=== PATIENT | female | born 2000 | race Caucasian/White ===

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

== ENCOUNTER → 2024-03-23 11:47 | Outpatient (BNVA) | payer MEDICAID, SELFPAY | PROVIDERS: Visit Provider Nurse Practitioner | DX: R39.9 Unspecified symptoms and signs involving the genitourinary system (principal) | CPT/HCPCS: 81000 ==

== ENCOUNTER → 2024-04-19 09:18 | Outpatient (BNVA) | payer MEDICAID, SELFPAY | PROVIDERS: PCP Family Medicine Adult Medicine; Visit Provider Nurse Practitioner Family | DX: J02.9 Acute pharyngitis, unspecified (principal) | CPT/HCPCS: 87880 ==

== ENCOUNTER 2024-05-30 22:38 | Emergency (ER) | payer MEDICAID, SELFPAY ==
[2024-05-30 22:39] VITALS: BP 132/86; PULSE 92; RESP 15; TEMP 36.8; O2SAT 99
--- NOTE | 2024-05-30 23:02 | XRR_ITS ---
PROCEDURE INFORMATION: Exam: XR Chest Exam date and time: 05/30/2024 11:10 PM Age: 23 years old Clinical indication: Other: Seizure TECHNIQUE: Imaging protocol: Radiologic exam of the chest. Views: 1 view. COMPARISON: CR XR chest 1V [id number] 02/20/2019 5:54 PM FINDINGS: Lungs: Unremarkable. No consolidation. Pleural spaces: Unremarkable. No pleural effusion. No pneumothorax. Heart/Mediastinum: Unremarkable. No cardiomegaly. Bones/joints: Unremarkable. XR/XR chest 1V portable [id number] IMPRESSION: No acute findings.
--- NOTE | 2024-05-30 23:02 | CTR_ITS ---
PROCEDURE INFORMATION: Exam: CT Head Without Contrast Exam date and time: 05/30/2024 11:07 PM Age: 23 years old Clinical indication: Altered mental status/memory loss and speech disturbance; Confusion or disorientation; Slurred speech; Additional info: Seizure TECHNIQUE: Imaging protocol: Computed tomography of the head without contrast. Radiation optimization: All CT scans at this facility use at least one of these dose optimization techniques: automated exposure control; mA and/or kV adjustment per patient size (includes targeted exams where dose is matched to clinical indication); or iterative reconstruction. COMPARISON: No relevant prior studies available. RADIATION DOSE METRICS: Total DLP (mGy-cm): 1002.38 FINDINGS: Brain: Normal. No hemorrhage. Unremarkable white matter. No mass effect. Cerebral ventricles: No ventriculomegaly. Paranasal sinuses: Visualized sinuses are unremarkable. No fluid levels. Mastoid air cells: Visualized mastoid air cells are well aerated. Bones: Unremarkable. No acute fracture. Soft tissues: Unremarkable. CT/CT head wo con* [id number] IMPRESSION: No acute intracranial abnormality.
--- NOTE | 2024-05-30 23:04 | ED_ITS ---
HPI - Seizure 2 General: Chief Complaint: Seizure Stated Complaint: seizure Time Seen by Provider: 05/30/24 22:54 History of Present Illness: HPI Narrative: Patient reports having seizures today about 1:00. Patient does have a history of seizures last known seizure was about a year ago. She reports this seizure was mild 1 where she open and close her eyes several times in her eyes twitch [id number] and she passed out. Patient still having headache from this. Patient did take 2 [id number] Motrin. Patient is not on any medication for seizures. This was witnessed by her friends. She also says she still has a headache on her right side and feels some pressure in her eye. Review of Systems 2 General: Reports: 10 or more systems reviewed and unremarkable except in HPI and below PFSH ED 2 PFSH: Medical History Skin tag, acquired Dermatofibroma of neck Heart palpitations Surgical History History of bilateral ligation of fallopian tubes Lap BTL 12/16/[address] Sebas Deras, [facility] Status post laparoscopic cholecystectomy H/O esophagogastroduodenoscopy 01/02/2020: Mild gastritis Family History Grandmother Cancer breast cancer Father No problems noted. Mother Ovarian cancer Heart palpitations Other Diabetes Heart disease Denies family history of Anesthesia complication Bleeding disorder Social History Smoking and tobacco/nicotine status: never used tobacco/nicotine Alcohol intake: never Substance/Drug Use: never Household members: significant other Marital status: Single Current occupational status: unemployed Physical Exam 2 Const: COMMON NORMALS: no acute distress, average body habitus, patient oriented x3, no limitations, healthy appearing, alert and well nourished HENMT: COMMON NORMALS: normocephalic, atraumatic, hearing grossly normal bilaterally, external ears normal, Normal external nose present and moist oral mucous membranes HEAD & SCALP: normocephalic and atraumatic NOSE: Normal external nose present EXTERNAL EAR: Yes external ears normal Eye: COMMON NORMALS: Equal, round and reactive pupils present, EOMs intact bilaterally, conjunctivae normal and no scleral icterus CONJUNCTIVA: Yes conjunctivae normal PUPIL: Yes Equal, round and reactive pupils present Neck/C-Spine: COMMON NORMALS: full ROM, no lymphadenopathy, supple, no meningeal signs, no JVD and Thyroid normal THYROID: Thyroid normal Chest: COMMONS NORMALS: normal inspection of the chest and normal palpation of entire chest wall Resp: COMMON NORMALS: normal respiratory effort, No retractions, No use of accessory muscles and clear to auscultation bilaterally AUSCULTATION: clear to auscultation bilaterally Cardio: COMMON NORMALS: no JVD, regular rate, regular rhythm, S1 normal heart sound present, S2 normal heart sound present, No gallops present (Cardio), No clicks present (Cardio) and No murmurs present (Cardio) RATE: regular rate RHYTHM: regular rhythm HEART SOUNDS: S1 normal heart sound present and S2 normal heart sound present GI: COMMON NORMALS: Normal to inspection, nondistended, normoactive bowel sounds present, Soft to palpation, non-tender, No hepatosplenomegaly present and no masses PALPATION: Yes Soft to palpation and Yes No hepatosplenomegaly present Neuro: COMMON NORMALS: patient oriented x3 SENSORIUM/ORIENTATION: Yes alert MENINGEAL SIGNS: Yes no meningeal signs Course 2 Vital Signs: Vital signs: Vital Signs Temperature 98.2 F 05/30/24 22:39 Pulse Rate 73 05/31/24 00:45 Respiratory Rate 16 05/31/24 00:45 Blood Pressure 105/64 05/31/24 00:45 Pulse Oximetry 96 05/31/24 00:45 Oxygen Delivery Me thod Room Air 05/31/24 00:45 MDM - Seizure MDM Narrative Medical decision making narrative: Results was discussed with the patient. Patient still having headache. Will give the patient a shot of Toradol. Patient will follow-up with her PCP within next 7 to 10 days. Medical Records Attestation: I reviewed the patient's medical records. Lab Data Attestation: I reviewed the patient's lab results. 05/30/24 23:39 05/30/24 23:39 Labs: Radiology Impressions Chest X-Ray 05/30/24 23:02 IMPRESSION: No acute findings. Head CT 05/30/24 23:02 IMPRESSION: No acute intracranial abnormality. Laboratory Results WBC 10.54 10^3/uL (3.29-11.43) 05/30/24 23:39 RBC 4.31 10^6/uL (3.85-5.65) 05/30/24 23:39 Hgb 12.20 g/dL (11.27-16.99) 05/30/24 23:39 Hct 37.2 % (36-47) 05/30/24 23:39 MCV 86.3 fl (85-98) 05/30/24 23:39 MCH 28.3 pg (27-33) 05/30/24 23:39 MCHC 32.8 g/dL (30-55) 05/30/24 23:39 RDW 12.6 % (12.1-15.1) 05/30/24 23:39 Plt Count 265 10^3/cmm (157-399) 05/30/24 23:39 MPV 10.9 fL (7.4-10.4) H 05/30/24 23:39 Neut % (Auto) 57.7 % 05/30/24 23:39 Lymph % (Auto) 36.1 % 05/30/24 23:39 [place] % (Auto) 4.2 % 05/30/24 23:39 Eos % (Auto) 1.2 % 05/30/24 23:39 Baso % (Auto) 0.5 % 05/30/24 23:39 Neut # (Auto) 6.08 10^3/uL (1.8-7.7) 05/30/24 23:39 Lymph # (Auto) 3.8 10^3/uL (0.8-4.8) 05/30/24 23:39 [place] # (Auto) 0.4 10^3/uL (0.2-0.9) 05/30/24 23:39 Eos # (Auto) 0.1 10^3/uL (0.0-0.8) 05/30/24 23:39 Baso # (Auto) 0.1 10^3/uL (0.0-0.1) 05/30/24 23:39 Nucleated RBC % (auto) 0 % 05/30/24 23:39 Nucleated RBCs # 0.0 /100WBC 05/30/24 23:39 Sodium 139 mmol/L (136-145) 05/30/24 23:39 Potassium 3.8 mmol/L (3.5-5.1) 05/30/24 23:39 Chloride 106 mmol/L (98-107) 05/30/24 23:39 Carbon Dioxide 22 mmol/L (22-29) 05/30/24 23:39 Anion Gap 14.8 (5-19) 05/30/24 23:39 BUN 12 mg/dL (6-20) 05/30/24 23:39 Creatinine 0.7 mg/dL (0.5-0.9) 05/30/24 23:39 GFR Calculation 104.6 mL/min (90-130) 05/30/24 23:39 Glucose 101 mg/dL (65-115) 05/30/24 23:39 Calculated Osmolality 288 mOsm/kg (285-295) 05/30/24 23:39 Calcium 8.9 mg/dL (8.5-10.5) 05/30/24 23:39 Total Bilirubin 0.2 mg/dL (0.15-1.2) 05/30/24 23:39 AST 12 U/L (0-32) 05/30/24 23:39 ALT 12 U/L (0-33) 05/30/24 23:39 Alkaline Phosphatase 85 U/L (35-105) 05/30/24 23:39 Creatine Kinase 51 U/L (26-192) 05/30/24 23:39 Total Protein 7.3 g/dL (6.6-8.7) 05/30/24 23:39 Albumin 3.9 g/dL (3.5-5.2) 05/30/24 23:39 Globulin 3.4 g/dL (1.3-4.6) 05/30/24 23:39 Urine Color Yellow (Yellow) 05/30/24 23:20 Urine Appearance Slightly cloudy (CLEAR) 05/30/24 23:20 Urine pH 6 (5-7) 05/30/24 23:20 Ur Specific [place] 1.025 (1.005-1.030) 05/30/24 23:20 Urine Protein Neg (Negative) 05/30/24 23:20 Urine Glucose (UA) Norm (Normal) 05/30/24 23:20 Urine Ketones Negative (Negative) 05/30/24 23:20 Urine Blood Neg (Negative) 05/30/24 23:20 Urine Nitrate Negative (Negative) 05/30/24 23:20 Urine Bilirubin Neg (Negative) 05/30/24 23:20 Urine Urobilinogen Norm mg/dL (Negative) 05/30/24 23:20 Ur Leukocyte Esterase 2+ (Negative) H 05/30/24 23:20 Urine RBC None /hpf (0-2) 05/30/24 23:20 Urine WBC 10-15 /hpf (0-5) H 05/30/24 23:20 Ur Squamous Epith Cells 5-10 /hpf (0-5) H 05/30/24 23:20 Amorphous Sediment Not Reportable 05/30/24 23:20 Urine Bacteria 1+ /hpf (NONE) H 05/30/24 23:20 Urine Mucus Trace /hpf 05/30/24 23:20 Urine Opiates Screen Negative ng/mL (Negative) 05/30/24 23:20 Ur Barbiturates Screen Negative ng/mL (Negative) 05/30/24 23:20 Ur Phencyclidine Scrn Negative ng/mL (Negative) 05/30/24 23:20 Ur Amphetamines Screen Negative ng/mL (Negative) 05/30/24 23:20 U Benzodiazepines Scrn Negative ng/mL (Negative) 05/30/24 23:20 Urine Cocaine Screen Negative ng/mL (Negative) 05/30/24 23:20 U Marijuana (THC) Screen Negative ng/mL (Negative) 05/30/24 23:20 All radiology interpretation(s) finalized by discharge Discharge Plan Discharge Patient Disposition: Home Clinical Impression: Focal seizure Headache Qualifiers: Headache type: unspecified Headache chronicity pattern: acute headache I ntractability: not intractable Qualified Code(s): R51.9 - Headache, unspecified Condition: Stable Prescriptions: No Action amoxicillin 875 mg tablet 875 mg PO BID 7 Days Qty: 14 0RF Discharge Orders: Discharge ED (Routine); Ordered 05/31/24 Ordered By: Gilbert Canales Referrals: Live Campo MD [Primary Care Provider] - 1 week Patient Instructions: Seizures, Headache Activity Restrictions/Additional Instructions: Thank you for choosing [facility] for your healthcare needs today. Please realize that you were seen in the emergency department and that we are providing you with an emergency medical screening exam and this may not be a complete and all exclusive of all testing and/or medical workup we may need to determine your element or severity of your illness. It is very important that you follow-up as instructed with your primary care provider or specialist for the additional evaluation and to discuss your medical treatment plan. You may return to the emergency department should you have concerns or if your condition changes or worsens in any way. Coding Level of Care Code ED [employer] Operator for Chano Young
[2024-05-30 23:30] VITALS: BP 119/69; PULSE 85; RESP 15; O2SAT 97
[2024-05-30 23:37] LABS: Amphetamines Screen Urine Negative (Negative); Barbiturates Screen Urine Negative (Negative); Benzodiazepines Screen Urine Negative (Negative); Cocaine Screen Urine Negative (Negative); Opiate Screen Urine Negative (Negative); PCP Screen Urine Negative (Negative); THC Screen Urine Negative (Negative)
[2024-05-30 23:55] LABS: Basophils # 0.1 10^3/uL (0.0-0.1); Basophils % 0.5 %; Eosinophils # 0.1 10^3/uL (0.0-0.8); Eosinophils % 1.2 %; Hematocrit 37.2 % (36-47); Lymphocytes # 3.8 10^3/uL (0.8-4.8); Lymphocytes % 36.1 %; Mean Corpuscular HGB Conc 32.8 g/dL (30-55); Mean Corpuscular Hemoglobin 28.3 pg (27-33); Mean Corpuscular Volume 86.3 fl (85-98); Mean Platelet Volume 10.9 fL (7.4-10.4); Monocytes # 0.4 10^3/uL (0.2-0.9); Monocytes % 4.2 %; Neutrophils # 6.08 10^3/uL (1.8-7.7); Neutrophils % 57.7 %; Nucleated Red Blood Cells % 0 %; Platelet Count 265 10^3/cmm (157-399); Red Blood Count 4.31 10^6/uL (3.85-5.65); Red Cell Distribution Width 12.6 % (12.1-15.1); White Blood Count 10.54 10^3/uL (3.29-11.43)
[2024-05-30 23:55] LABS: Add Urine Microscopic? YES; Bilirubin Urine Neg (Negative); Blood Urine Neg (Negative); Glucose Urine UA Norm (Normal); Ketones Urine Negative (Negative); Leukocyte Esterase Urine 2+ (Negative); Nitrate Urine Negative (Negative); Protein Urine Neg (Negative); Specific Gravity, Urine 1.025 (1.005-1.030); Urine Appearance Slightly Cloudy (CLEAR); Urine Color Yellow (Yellow); Urobilinogen Urine Norm (Negative); pH Urine 6 (5-7)
[2024-05-30 23:56] LABS: Add Urine Culture? No; Bacteria Urine 1+ /hpf; Mucus Urine TRACE /hpf
[2024-05-31] VITALS: PULSE 81; RESP 16; O2SAT 98
[2024-05-31 00:21] LABS: Alanine Aminotransferase 12 U/L (0-33); Albumin Level 3.9 g/dL (3.5-5.2); Alkaline Phosphatase 85 U/L (35-105); Anion Gap 14.8 (5-19); Aspartate Amino Transferase 12 U/L (0-32); Blood Urea Nitrogen 12 mg/dL (6-20); Calcium 8.9 mg/dL (8.5-10.5); Carbon Dioxide 22 mmol/L (22-29); Chloride 106 mmol/L (98-107); Creatine Phosphokinase 51 U/L (26-192); Creatinine Clr Calc Pharmacy 116.6529; Globulin 3.4 g/dL (1.3-4.6); Glomerular Filtration Rate 104.6 mL/min (90-130); Glucose 101 mg/dL (65-115); Osmolality Calculated 288 mOsm/kg (285-295); Potassium 3.8 mmol/L (3.5-5.1); Sodium 139 mmol/L (136-145); Total Bilirubin 0.2 mg/dL (0.15-1.2); Total Protein 7.3 g/dL (6.6-8.7)
[2024-05-31 00:45] VITALS: BP 105/64; PULSE 73; RESP 16; O2SAT 96
[2024-05-31] MEDS: HYDROcodone-acetaminophen 5-325 mg Tablet 1 TAB PO (01:09)
[2024-05-31 01:12] VITALS: BP 97/52; PULSE 93; RESP 16; O2SAT 99
[2024-05-31 02:25] LABS: Prolactin 20.05 ng/mL (4.8-23.3)
== END 2024-05-31 01:14 | disposition home or self-care (01) ==
PROVIDERS: Emergency Provider Emergency Medicine; PCP Family Medicine Adult Medicine
DX: G40.89 Other seizures (principal); R51.9 Headache, unspecified
CPT/HCPCS: 36415; 70450; 71045; 80053; 80306; 81001; 82550; 84146; 85025; 99284

== ENCOUNTER 2024-07-17 12:23 | Outpatient (CLI) | payer MEDICAID, SELFPAY ==
--- NOTE | 2024-07-17 12:28 | US_ITS ---
WS: [id number] ULTRASOUND BILATERAL BREAST HISTORY: BILATERAL BREAST PAIN COMPARISON: None available. TECHNIQUE: 2-D and Doppler. The breasts are extremely dense, which lowers the sensitivity of mammography. No abnormalities noted within either breast. Ultrasound is directed to the areas of pain as by the patient. No suspicious ma sses. US/US breast BI limited* [id number] IMPRESSION: BI-RADS: 1 - Negative FOLLOW-UP: See Report No ultrasound abnormality within either breast.
== END 2024-07-17 12:24 | disposition home or self-care (01) ==
LOC: RAD 12:24
PROVIDERS: PCP Family Medicine Adult Medicine; Visit Provider Family Medicine
DX: N64.4 Mastodynia (principal); R92.333 Mammographic heterogeneous density, bilateral breasts
CPT/HCPCS: 76642